=== PATIENT | male | born 1950 | race Caucasian/White ===

== ENCOUNTER 2020-04-17 12:07 | Inpatient (IN) ==
[2020-04-17] MEDS ORDERED: DEXAMETHASONE SOD INJ 10 MG/ML VIAL IV ONE (12:26)
--- NOTE | 2020-04-17 12:34 | Emergency Department Note ---
Impression & Plan Pneumonia due to 2019-nCoV, Hypoxia, Acute kidney injury ED Provider Note NAME: CARLY MONROY Jr AGE: 70 SEX: M : 1950 ARRIVES VIA: Walk-In INFORMANT: Patient, ED PROVIDER(S): Roberto Carlos Sosa DO CHIEF COMPLAINT: Difficulty breathing HPI: The patient is a 70-year-old male who presented to the emergency department for an evaluation of difficulty breathing. The patient states that he has had difficulty breathing over the course the last week. He started having symptoms approximately 1 to 1/2 weeks ago which included fever and GI symptoms. He had a loss of smell. He started having a dry cough. He was seen in [place] at a clinic and was tested for COVID-19 and was positive. 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 He denies having any chest pain. He denies having any lower extremity swelling. He does continue to have intermittent episodes of fever with a T-max of 103. The patient states that his family members noticed that he was having very significant shortness of breath with any exertion. This is what prompted the patient to come to the emergency department today. The patient does not normally wear oxygen. He does not normally have any underlying lung problems but does have a history of a cardiac stent. ROS: See above HPI for pertinent positives & negatives. A total of 10 systems reviewed and were otherwise negative. PAST MEDICAL HISTORY: See Below PAST SURGICAL HISTORY: See Below FAMILY HISTORY: See Below SOCIAL HISTORY: See Below HOME MEDICATIONS: See Below ALLERGIES: See Below VITALS: See Below PHYSICAL EXAMINATION: GENERAL: Patient is awake alert in no acute distress patient is resting comfortably and showing no signs of anxiety EYES: The conjunctivae are clear. The pupils are round and reactive. EARS, NOSE, MOUTH AND THROAT: The nose is without any evidence of any deformity. NECK: The neck is nontender and supple. RESPIRATORY: Shallow respirations were noted. Rales were noted in both bases. Poor air movement was noted. There was no significant conversational dyspnea. CARDIOVASCULAR: Regular rate and rhythm noted there no murmurs rubs or gallops normal S1 normal S2. GASTROINTESTINAL: The abdomen is soft. Abdomen is nontender. MUSCULOSKELETAL/EXTREMITIES: There is no evidence of gross deformity full range of motion is noted in the hips and shoulders. SKIN: There is no obvious evidence of any rash. No significant pedal edema was noted. NEUROLOGIC: Patient is awake alert and oriented x3. MEDICAL DECISION MAKING: The patient is a 70-year-old male who presented to the emergency department for an evaluation of difficulty breathing. The patient was recently diagnosed with COVID-19. Chest x-ray appears to be consistent with COVID-19 infection. The patient was hypoxic. I discussed the patient's laboratory and radiographic studies with him. [facility] have agreed to evaluate the patient in the emergency department for further management and disposition. The patient was placed on supplemental oxygen. The patient at rest was significantly improved. The patient was also found to have an elevation in his troponin. He was treated with IV fluids and IV Decadron. Triage Nursing notes reviewed. Prior medical records reviewed Vital Signs: reviewed and remarkable for hypoxia and hypotension. Differential diagnosis: Reactive airway disease, pneumonia, pneumothorax, COPD, CHF, infections, cardiac ischemia, pulmonary embolism, musculoskeletal, gastrointestinal, as well as other pathologies. ER treatment provided: See below Diagnostics interpreted by me: ECG: EKG was obtained in the emergency department. My interpretation is normal sinus rhythm at 64 bpm. There was no ectopy. There was no acute ST segment abnormalities noted. This was compared to a tracing from December 272012. No significant changes were noted. Cardiac Monitoring: An order was placed for continuous cardiac monitoring. The m onitor shows a rate of 58 bpm with sinus rhythm. Laboratory studies: As stated above and show below. Imaging studies: See below Consultation(s): 1400: I discussed this case with Dr. Pena who [facility] They will evaluate the patient in the emergency department. Past Med/Surg History Surgical History History of knee replacement History of thyroid surgery Family History Father Melanoma Social History Smoking Status: Former smoker Hx Alcohol Use: Yes (socially) Preferred Language: Gambian marital status: Feels Safe at Home: Yes Allergies Allergies Allergy/AdvReac Type Severity Reaction Status Date / Time No Known Drug Allergies Allergy Verified 12/13/19 13:29 Home Meds Home Medications Medication Instructions Recorded Confirmed atenolol 50 mg tablet 50 mg PO DAILY tab 11/23/18 12/13/19 atorvastatin 40 mg tablet 40 mg PO QPM tab 11/23/18 12/13/19 diltiazem HCl 240 mg 240 mg PO DAILY 11/23/18 12/13/19 capsule,extended release 24 hr famotidine 40 mg tablet 40 mg PO DAILY tab 11/23/18 12/13/19 levothyroxine 200 mcg tablet 200 mcg PO DAILY tab 11/23/18 12/13/19 levothyroxine 25 mcg tablet 25 mcg PO DAILY tab 11/23/18 12/13/19 nitroglycerin 0.4 mg sublingual 0.4 mg SL Q5M PRN #1 tab 11/23/18 12/13/19 tablet olmesartan 40 1 tab PO DAILY tab 11/23/18 12/13/19 mg-hydrochlorothiazide 25 mg tablet omega-3 fatty acids 1,000 mg 1,000 mg PO DAILY cap 12/07/18 12/13/19 capsule aspirin 81 mg tablet,delayed 81 mg PO DAILY 06/13/19 12/13/19 release diltiazem HCl 120 mg 120 mg PO DAILY cap 06/13/19 12/13/19 capsule,extended release 24 hr hydrochlorothiazide 25 mg tablet 25 mg PO DAILY 06/13/19 12/13/19 cholecalciferol (vitamin D3) 50 2,000 unit PO DAILY cap 12/13/19 12/13/19 mcg (2,000 unit) capsule prednisone 1 mg tablet 4 mg PO DAILY tab 12/13/19 12/13/19 Previous Rx's Medication Instructions Recorded finasteride 5 mg tablet 5 mg PO DAILY #90 tab 11/02/19 tamsulosin 0.4 mg capsule 0.4 mg PO DAILY #90 cap 01/03/20 Results & Data (ED) Vital Signs Vital Signs - 24 hr 04/17/20 12:08 04/17/20 12:09 04/17/20 12:50 Temperature 36.8 C Temperature Source Temporal Artery Scan Pulse Rate 69 Pulse Rate [Left] Pulse Rhythm [Left] Pulse Strength [Left] Respiratory Rate 18 Respiratory Effort / Characteristics Respiratory Depth Respiratory Pattern Blood Pressure 119/71 Blood Pressure [Left Arm] Blood Pressure Mean 87 Blood Pressure Mean [Left Arm] Blood Pressure Position [Left Arm] Pulse Oximetry 89 L 89 L Oxygen Delivery Method Nasal Cannula Room Air Room Air Oxygen Flow Rate Sepsis Recent Fever Within 48 Hours No Sepsis New/Unexplained Change in Mental Status No Sepsis Action Taken by Nursing No Action Required Oxygen Flow Rate - Titration 2 04/17/20 13:30 Temperature Temperature Source Pulse Rate Pulse Rate [Left] 55 L Pulse Rhythm [Left] Regular Pulse Strength [Left] Normal Respiratory Rate 18 Respiratory Effort / Characteristics Non-Labored Spontaneous Respiratory Depth Normal Respiratory Pattern Regular Blood Pressure Blood Pressure [Left Arm] 105/57 L Blood Pressure Mean Blood Pressure Mean [Left Arm] 73 Blood Pressure Position [Left Arm] Lying Pulse Oximetry 93 Oxygen Delivery Method Nasal Cannula Oxygen Flow Rate 2 Sepsis Recent Fever Within 48 Hours Sepsis New/Unexplained Change in Mental Status Sepsis Action Taken by Nursing Oxygen Flow Rate - Titration Home Medications Current Medication List: was personally reviewed by me Laboratory Data Attestation: I reviewed the patient's lab results. Result diagrams: 04/17/20 12:45 04/17/20 12:45 Lab Results 04/17/20 04/17/20 04/17/20 Range/Units 12:45 12:45 12:45 WBC 8.37 (4.8-10.8) K/uL RBC 4.97 (4.7-6.1) M/uL Hgb 15.6 (14.0-18.0) g/dL Hct 43.9 (42-52) % MCV 88.3 (80-100) fL MCH 31.4 (25-34) pg MCHC 35.5 (32-36) g/dL RDW Std Deviation 44.0 (36.4-46.3) fL RDW Coeff of Jerry 13.5 (11.5-14.5) % Plt Count 208 (130-400) K/uL MPV 11.2 H (7.4-10.4) fL Immature Gran % (Auto) 0.5 % Neut % (Auto) 84.9 % Lymph % (Auto) 5.3 % Spink % (Auto) 9.2 % Eos % (Auto) 0.0 % Baso % (Auto) 0.1 % Neut # (Auto) 7.11 H (1.4-6.5) K/uL Lymph # (Auto) 0.44 L (1.2-3.4) K/uL Spink # (Auto) 0.77 H (0.11-0.59) K/uL Eos # (Auto) 0.00 (0-0.5) K/uL Baso # (Auto) 0.01 (0-0.2) K/uL Immature Gran # (Auto) 0.04 H (0.00-0.02) K/uL PT 11.5 (9.0-12.0) Seconds INR 1.1 (0.9-1.1) APTT 31.1 H (21.0-31.0) Seconds PTT Ratio 1.1 D-Dimer 880 H* (0-500) ug/L FEU Sodium 132 L (136-145) mmol/L Potassium 3.3 L (3.5-5.1) mmol/L Chloride 99 (98-107) mmol/L Carbon Dioxide 22 (21-32) mmol/L Anion Gap 11.0 (3-11) BUN 39 H (7-18) mg/dl Creatinine 1.96 H (0.6-1.4) mg/dl Est Cr Clr Drug Dosing 44.9 ml/min Est GFR ( Amer) 38.7 Est GFR (Non-Af Amer) 33.4 BUN/Creatinine Ratio 19.8 (10-20) Glucose 132 H (70-99) mg/dl Calcium 9.0 (8.5-10.1) mg/dl Magnesium 2.0 (1.8-2.4) mg/dl Total Bilirubin 1.5 H (0.2-1) mg/dl AST 159 H (15-37) U/L ALT 137 H (12-78) U/L Alkaline Phosphatase 77 (45-117) U/L Troponin I 0.060 H* (0-0.045) ng/ml C-Reactive Protein 4.39 H (0-0.29) mg/dl NT-Pro-B Natriuret Pep 318 (0-900) pg/ml Total Protein 7.8 (6.4-8.2) gm/dl Albumin 3.3 L (3.4-5.0) gm/dl Globulin 4.5 H (2.5-4.0) gm/dl Albumin/Globulin Ratio 0.7 L (0.9-2) COVID-19 Eval Order 04/17/20 Range/Units 13:29 WBC (4.8-10.8) K/uL RBC (4.7-6.1) M/uL Hgb (14.0-18.0) g/dL Hct (42-52) % MCV (80-100) fL MCH (25-34) pg MCHC (32-36) g/dL RDW Std Deviation (36.4-46.3) fL RDW Coeff of Jerry (11.5-14.5) % Plt Count (130-400) K/uL MPV (7.4-10.4) fL Immature Gran % (Auto) % Neut % (Auto) % Lymph % (Auto) % Spink % (Auto) % Eos % (Auto) % Baso % (Auto) % Neut # (Auto) (1.4-6.5) K/uL Lymph # (Auto) (1.2-3.4) K/uL Spink # (Auto) (0.11-0.59) K/uL Eos # (Auto) (0-0.5) K/uL Baso # (Auto) (0-0.2) K/uL Immature Gran # (Auto) (0.00-0.02) K/uL PT (9.0-12.0) Seconds INR (0.9-1.1) APTT (21.0-31.0) Seconds PTT Ratio D-Dimer (0-500) ug/L FEU Sodium (136-145) mmol/L Potassium (3.5-5.1) mmol/L Chloride (98-107) mmol/L Carbon Dioxide (21-32) mmol/L Anion Gap (3-11) BUN (7-18) mg/dl Creatinine (0.6-1.4) mg/dl Est Cr Clr Drug Dosing ml/min Est GFR ( Amer) Est GFR (Non-Af Amer) BUN/Creatinine Ratio (10-20) Glucose (70-99) mg/dl Calcium (8.5-10.1) mg/dl Magnesium (1.8-2.4) mg/dl Total Bilirubin (0.2-1) mg/dl AST (15-37) U/L ALT (12-78) U/L Alkaline Phosphatase (45-117) U/L Troponin I (0-0.045) ng/ml C-Reactive Protein (0-0.29) mg/dl NT-Pro-B Natriuret Pep (0-900) pg/ml Total Protein (6.4-8.2) gm/dl Albumin (3.4-5.0) gm/dl Globulin (2.5-4.0) gm/dl Albumin/Globulin Ratio (0.9-2) COVID-19 Eval Order CovFluRsv at [facility] Administered Medications Discontinued Medications Dexamethasone (Dexamethasone Sod Inj 10 Mg/Ml Vial) 10 mg IV NOW ONE Stop: 04/17/20 12:27 Last Admin: 04/17/20 13:29 Dose: 10 mg Documented by: [id number] Imaging Data Radiologist's Impression: Patient: CARLY MONROY Jr Admit Date: 04/17/20 MR#: [id number] Address1: [address] [place] [address] Acct ID:[id number] Address2: Date: 1950 [facility] Zip: [place] [address] Age: 70 Location: ED Sex: M Room/Bed: Att Phy: Diagnosis: COVID +,SOB GETTING WORSE,FEVER OVER 100 [place] Phy: Joe Hernandez M.D. Service Date: 04/17/20 [facility] Phy: Interpreting Phy: Gibson Davis MD Admit Phy: Ordering Phy: Roberto Carlos Sosa DO cc: ~ XR chest 1V portable CLINICAL HISTORY: Dyspnea COMPARISON STUDY: Chest radiograph December 27, 2012. FINDINGS: Incidental note is made of multiple left rib fractures. There is no pneumothorax or pleural effusion. Minimal bibasilar opacities are present with interstitial thickening. There is mild cardiomegaly. IMPRESSION: Minimal bibasilar opacities and interstitial thickening. This could reflect an infectious process or atelectasis. ACT 112: Negative or not required by law. Electronically signed by: Gibson Davis M.D. 04/17/2020 1:30 PM Dictated: 04/17/20 1328 Transcribed: 04/17/20 1328 Blood Pressure Blood Pressure Findings: Normal blood pressure Discharge Plan Visit Data Chief Complaint: Shortness of Breath/Dyspnea Stated Complaint: COVID +,SOB GETTING WORSE ED Provider: Roberto Carlos Sosa Discharge Problem: Pneumonia due to 2019-nCoV, Hypoxia, Acute kidney injury Patient Disposition: Being Evaluated by Hospitalist Condition: Good Forms Stand Alone Forms: My [facility] [employer] Prescriptions Prescriptions: No Action finasteride 5 mg tablet 5 mg PO DAILY Qty: 90 RF: 1 tamsulosin 0.4 mg capsule 0.4 mg PO DAILY Qty: 90 RF: 3 aspirin 81 mg tablet,delayed release (DR/EC) 81 mg PO DAILY RF: 0 hydrochlorothiazide 25 mg tablet 25 mg PO DAILY RF: 0 prednisone 1 mg tablet 4 mg PO DAILY RF: 0 cholecalciferol (vitamin D3) 50 mcg (2,000 unit) capsule 2,000 unit PO DAILY RF: 0 nitroglycerin 0.4 mg tablet, sublingual 0.4 mg SL Q5M PRN (Reason: chest pain) Qty: 1 RF: 0 famotidine 40 mg tablet 40 mg PO DAILY RF: 0 atenolol 50 mg tablet 50 mg PO DAILY RF: 0 diltiazem HCl [Cardizem CD] 240 mg capsule,extended release 24hr 240 mg PO DAILY RF: 0 olmesartan-hydrochlorothiazide 40-25 mg tablet 1 tab PO DAILY RF: 0 levothyroxine 200 mcg tablet 200 mcg PO DAILY RF: 0 levothyroxine 25 mcg tablet 25 mcg PO DAILY RF: 0 atorvastatin 40 mg tablet 40 mg PO QPM RF: 0 omega-3 fatty acids [Fish Oil Concentrate] 1,000 mg capsule 1,000 mg PO DAILY RF: 0 diltiazem HCl 120 mg capsule,extended release 24hr 120 mg PO DAILY RF: 0 Referrals Referrals: Joe Hernandez [Primary Care Provider] -
[2020-04-17 12:59] LABS: Basophils # (auto) 0.01 K/uL (0-0.2); Basophils % (auto) 0.1 %; Hematocrit (blood only) 43.9 % (42-52); Hemoglobin 15.6 g/dL (14.0-18.0); Immature Granulocytes # (auto) 0.04 K/uL (0.00-0.02); Immature Granulocytes % (auto) 0.5 %; Lymphocytes # (auto) 0.44 K/uL (1.2-3.4); Lymphocytes % (auto) 5.3 %; Mean Corpuscular Hemoglobin 31.4 pg (25-34); Mean Corpuscular Hgb Conc 35.5 g/dL (32-36); Mean Corpuscular Volume 88.3 fL (80-100); Mean Platelet Volume 11.2 fL (7.4-10.4); Monocytes # (auto) 0.77 K/uL (0.11-0.59); Monocytes % (auto) 9.2 %; Neutrophils # (auto) 7.11 K/uL (1.4-6.5); Neutrophils % (auto) 84.9 %; Platelet Count 208 K/uL (130-400); RDW Coefficient of Variation 13.5 % (11.5-14.5); Red Blood Count 4.97 M/uL (4.7-6.1); White Blood Count 8.37 K/uL (4.8-10.8)
[2020-04-17 13:19] LABS: Albumin Level 3.3 gm/dl (3.4-5.0); BUN Creatinine Ratio 19.8 (10-20); C Reactive Protein 4.39 mg/dl (0-0.29); Creatinine Clr Calc Pharmacy 44.9 ml/min; Est GFR (African American) 38.7; Est GFR (Non-African American) 33.4; Potassium 3.3 mmol/L (3.5-5.1)
[2020-04-17 13:21] LABS: INR 1.1 (0.9-1.1); Partial Thromboplastin Ratio 1.1; Partial Thromboplastin Time 31.1 Seconds (21.0-31.0); Prothrombin Time 11.5 Seconds (9.0-12.0)
--- NOTE | 2020-04-17 13:31 | XRay Report ---
XR chest 1V portable CLINICAL HISTORY: Dyspnea COMPARISON STUDY: Chest radiograph December 27, 2012. FINDINGS: Incidental note is made of multiple left rib fractures. There is no pneumothorax or pleural effusion. Minimal bibasilar opacities are present with interstitial thickening. There is mild cardio megaly. IMPRESSION: Minimal bibasilar opacities and interstitial thickening. This could reflect an infectiou s process or atelectasis. ACT 112: Negative or not required by law. Electronically signed by: Gibson Davis M.D. 04/17/2020 1:30 PM
[2020-04-17 13:32] LABS: Albumin Globulin Ratio 0.7 (0.9-2); Bilirubin,Total 1.5 mg/dl (0.2-1); Globulin 4.5 gm/dl (2.5-4.0); Total Protein 7.8 gm/dl (6.4-8.2); Troponin I 0.06 ng/ml (0-0.045)
[2020-04-17] MEDS ORDERED: SODIUM CHLORIDE 0.9% 1000ML 500 ML IV ONE (13:33)
[2020-04-17] MEDS ORDERED: POTASSIUM CHLORIDE CRTAB 20 MEQ TABCR PO STA (13:33)
[2020-04-17 13:45] LABS: D Dimer 880 ug/L FEU (0-500)
[2020-04-17 14:23] LABS: Influenza A virus by PCR Negative (Neg); Influenza B virus by PCR Negative (Neg); RSV by PCR Negative (Neg)
[2020-04-17] MEDS ORDERED: POTASSIUM CHLORIDE CRTAB 20 MEQ TABCR PO ONE (14:30)
[2020-04-17] MEDS ORDERED: LACTATED RINGER'S 1,000 ML IV ONE (14:30)
[2020-04-17 14:35] LABS: SARS CoV2 RNA(COVID-19) InHosp POSITIVE (Negative)
[2020-04-17 14:51] LABS: Oxygen Saturation VBG 82.4 %; pH VBG 7.45 (7.36-7.41)
--- NOTE | 2020-04-17 14:53 | History & Physical Report ---
Date of Service April 17, 2020 Assessment & Plan (1) COVID-19: Day 4 of symptoms, currently mild disease with multiple co-morbidities. - Evidence of organ dysfunction, will follow renal/liver/cardiac indices and biomarkers. - Hold on Remdesivir for now with CRCL, if this improves with fluid resuscitation AND patient condition worsens will add. Goal now is to preserve kidney function. - Consent for Convalescent Plasma if patient agrees. - Decadron 6mg for 10 days. - Procalcitonin 0.2, NLR 4:1. - Support oxygenation for goal SPO2 > 90%, good candidate for HFNC if needed. - Support fluids with diarrhea loss with oral and IVF if needed. (2) Hypoxia: Seccondary to COVID-19, does not appear to have bacterial infection superimposed. - PCT negative - no ABX needed - Albuterol and Atrovent MDI scheduled, change to PRN if responds well after 24 hours. - Rest of oxygen therapy as above. (3) CAD (coronary artery disease): Patient with history of RCA stent in 1997 - Continue asa, statin, BB and CCB - NTG prn if needed, patient states he has never used his NTG. - Hold AISHA/ARB for 24-48 hours following NILES (4) HTN (hypertension): As above. Goal SBP <140, MAPS >65 - Normally well controlled with BP 120-140, Currently SBP 105 with MAP 73. Will hold nightyime dose of Dilt. Follow closely restart when hemodynamics support. (5) Hypokalemia: Likely related to diarrhea losses, HCTZ, and poor PO intake. - Supplement with 40 MEQ PO x1 in the EMD - BMP daily - K~4.0 for goal (6) Acute kidney injury: Baseline BUN 9.8 and FELL CUTTER 1.14, has been stable at this for past year. -Currently stage I injury with FELL CUTTER >0.3mg/dl and CRCL 44.9 and GFR decreased to 33.4 from 64.8 in March. - Resucitate with LR for one liter, encourage PO intake to replace fluid lost with diarrhea - Hold AISHA/ARB 24-48 hours will re-start with renal indices return to close or at baseline. - Hold HCTZ at this time. - Avoid nephrotoxic agents - renal dose medications - Adjust Lovenox accordingly - follow BMP (7) HLD (hyperlipidemia): Check lipids in the morning Hold statin for elevated LFTs (8) Cerebrovascular disease: Manage blood pressure as above and holding statin therapy as above. - no new symptoms or evidence of worsening disease from physical exam. (9) BPH (benign prostatic hyperplasia): Continue home medications, follow urine output. - Hold if BP decreases (10) Troponin level elevated: Mild troponin elevation at 0.06, no acute changes on ECG, but non-specific T waves. Trend troponin, ECG with chest pain or rise in troponin. - therapy as above (11) PMR (polymyalgia rheumatica): Patient is chronically on Prednisone daily - Will hold while patient is receiving Decadron. - Tylenol for pain - Will hold on NSAIDs with NILES (12) Hypothyroidism: Check TSH in the AM continue home Levothyroxine dose for now (13) DVT prophylaxis: Lovenox SQ daily Disposition-admit to medical/surgical floor History of Present Illness Primary Care Provider: Joe Hernandez 70 YOM came to the ER today because his and son thought he was looking tired and having a more difficult time breathing. The patient states that "he feels "ok" and hasn't noticed it." Patient has a history of BPH, HLD, CAD with stenting in 1997 prior to his bilateral knee replacements, HTN, obesity, PMR and internal iliac aneurysm, and Hypothyroidism. The patient was recently diagnosed with COVID 19 on Apr,. 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 The patient's son-in law tested positive a couple weeks ago and his son recently tested positive on Apr. Mr. Giron started with a mild headache around and started having diarrhea on Thursday. Patients headache worsened on Thursday as well as having a fever to 103. The patient went and got tested at an urgent care in [place] on Thursday and was "positive". In the EMD the patient was 90% on RA on admission and maintained 90% on room air throughout the interview while on 2l NC the patient Spo2 was 94-96%. The patient denies any further symptoms, his headache has resolved and his joint pain is at his baseline, headache was mild 2-3/10 and was bilateral along the forehead. Diarrhea is about 4-5 times per day and has not noted blood in his stools and denies abdominal pain. The patient does show evidence of end organ involvement with elevated AST/ALT, Tbili, increase in his BUN/FELL CUTTER, and elevated CRP and ESR, with evidence of hypovolemia. The patient will be admitted for hypoxia, resuscitate and follow biomarkers for end organ involvement. Allergies Allergy/AdvReac Type Severity Reaction Status Date / Time No Known Drug Allergies Allergy Verified 04/17/20 14:38 Home Medications Medication Instructions Recorded Confirmed Type atenolol 50 mg tablet 50 mg PO DAILY tab 11/23/18 04/17/20 History atorvastatin 40 mg tablet 40 mg PO QPM tab 11/23/18 04/17/20 History diltiazem HCl 240 mg 240 mg PO DAILY 11/23/18 04/17/20 History capsule,extended release 24 hr famotidine 40 mg tablet 40 mg PO DAILY tab 11/23/18 04/17/20 History levothyroxine 200 mcg tablet 200 mcg PO DAILY tab 11/23/18 04/17/20 History levothyroxine 25 mcg tablet 25 mcg PO DAILY tab 11/23/18 04/17/20 History nitroglycerin 0.4 mg sublingual 0.4 mg SL Q5M PRN #1 tab 11/23/18 04/17/20 History tablet olmesartan 40 1 tab PO DAILY tab 11/23/18 04/17/20 History mg-hydrochlorothiazide 25 mg tablet omega-3 fatty acids 1,000 mg 1,000 mg PO DAILY cap 12/07/18 04/17/20 History capsule aspirin 81 mg tablet,delayed 81 mg PO DAILY 06/13/19 04/17/20 History release diltiazem HCl 120 mg 120 mg PO HS cap 06/13/19 04/17/20 History capsule,extended release 24 hr hydrochlorothiazide 25 mg tablet 25 mg PO DAILY 06/13/19 04/17/20 History finasteride 5 mg tablet 5 mg PO DAILY #90 tab 11/02/19 04/17/20 Rx cholecalciferol (vitamin D3) 50 2,000 unit PO DAILY cap 12/13/19 04/17/20 History mcg (2,000 unit) capsule tamsulosin 0.4 mg capsule 0.4 mg PO DAILY #90 cap 01/03/20 04/17/20 Rx prednisone 3 mg PO DAILY 04/17/20 04/17/20 History Past Med/Surg History Medical History (Updated 04/17/20 @ 19:24 by Sarika Pena MD) BPH (benign prostatic hyperplasia) CAD (coronary artery disease) RCA stent 1997 Cerebrovascular disease 50% bilateral JEFF HLD (hyperlipidemia) HTN (hypertension) Hyperdense renal cyst Hypothyroidism PMR (polymyalgia rheumatica) Surgical History H/O heart artery stent History of knee replacement History of thyroid surgery Family History Father Melanoma Coronary heart disease Hypertension Mother No problems noted. Social History Smoking Status: Former smoker Cigarettes Per Day: 24; Smoking End Date: 1995; Do You Dip or Chew Tobacco: No; Hx Alcohol Use: Yes Alcohol type: beer Hx Substance Use: No Preferred Language: Kinyarwanda Communication Ability: Effective General Farmworker Required: No Beliefs That Will Affect Care: None marital status: Current Living Situation: Spouse Current Living Situation Comment: Other Information That Helps Us Care for You: No Feels Safe at Home: Yes Safety Concerns: Feels Safe At This Time Assistive Devices: Denture - Upper, Denture - Lower, Glasses and Oxygen - Continuous Assistive Devices Comment: 02 use acute not chronic Review of Systems Review of Systems: REVIEW OF SYSTEMS: Constitutional: + fever, +fatigued, No sweats or chills Eyes: No diplopia, no worsening or blurred vision, wears glasses ENT: normal hearing, no trouble swallowing Respiratory: (+) cough, (-) sputum and denies dyspnea at rest or on exertion Cardiovascular: No chest pain, tightness or palpitations Abdomen: (+) diarrhea, (-) pain, nausea, vomiting, diarrhea or constipation : (+) Frequent urination, incomplete emptying of bladder, (-) incontinence Neurologic: No weakness, numbness/tingling, or balance problems Psychiatric: No anxiety or depression Skin: No rash or itch Physical Exam Physical Exam: PHYSICAL EXAM: General: awake, keenly alert, no apparent distress Head: Normocephalic, atraumatic ENT: PERRL, EOMI, no pharyngeal exudate, mucous membranes moist Neuro: AAO x 3, speech clear and appropriate, strength intact bilaterally 5/5, sensation intact and equal, no pronator drift Chest: equal rise and fall of the chest, no accessory muscle use, no heaves or thrills, Clear to auscultation, on room air Cardiac: Regular rate and rhythm, telemetry reviewed, skin warm dry, cap refill <3 seconds, peripheral pulses +2 no JVD, no murmur, no JVD, no edema GI: NABS x 4 quadrants, obese, soft, nontender to palpation, no rebound, guarding or tenderness : Spontaneously voiding, no pain, no CVA tenderness, Extremities: Normal inspection, no peripheral edema or erythema, calfs nontender to palpation Psych: Normal mood and affect Skin: no rash or erythema Results & Data Results & Data ([facility]) Vital Signs (Past 12 Hours) Vital Signs Temp Pulse Pulse Resp BP BP Pulse Ox 04/17/20 13:30 55 L 18 105/57 L 93 04/17/20 12:50 89 L 04/17/20 12:09 36.8 C 69 18 119/71 89 L XR chest 1V portable CLINICAL HISTORY: Dyspnea COMPARISON STUDY: Chest radiograph December 27, 2012. FINDINGS: Incidental note is made of multiple left rib fractures. There is no pneumothorax or pleural effusion. Minimal bibasilar opacities are present with interstitial thickening. There is mild cardiomegaly. IMPRESSION: Minimal bibasilar opacities and interstitial thickening. This could reflect an infectious process or atelectasis. ECG: Normal sinus rhythm Minimal voltage criteria for LVH, Nonspecific T wave abnormality Medications Administered Discontinued Medications Dexamethasone (Dexamethasone Sod Inj 10 Mg/Ml Vial) 10 mg IV NOW ONE Stop: 04/17/20 12:27 Last Admin: 04/17/20 13:29 Dose: 10 mg Documented by: [id number] Sodium Chloride (Nss 1000ml) 500 mls @ 999 mls/hr IV .Q31M ONE Stop: 04/17/20 14:03 Last Admin: 04/17/20 14:33 Dose: 999 mls/hr Documented by: [id number] Potassium Chloride (Potassium Chloride Crtab 20 Meq Tabcr) 20 meq PO NOW STA Stop: 04/17/20 13:34 Last Admin: 04/17/20 14:33 Dose: 20 meq Documented by: [id number] Potassium Chloride (Potassium Chloride Crtab 20 Meq Tabcr) 20 meq PO NOW ONE Stop: 04/17/20 14:31 Last Admin: 04/17/20 14:33 Dose: Not Given Documented by: [id number] Code Status & VTE Plan Code Status Full Code Lovenox and SCD's for VTE. VTE Prophylaxis Plan VTE Prophylaxis will be ordered: Yes Supervising Physician Co-Signing Physician Notes [employer]MENT REPAIRER Supervision note: I have personally seen and examined the patient and discussed and verified the courtney points of the history and physical along with the plan with AJAY Melendez with the following exceptions and/or additions: This patient is a 70-year-old male with history noted as above, here with worsening shortness of breath for the last 4 days with diagnosis of Covid-19. He is pneumonia here. He denies chest pain. Has a mild cough. Has also had some loose stools that are nonbloody. No abdominal pain. He was requiring oxygen in the ER and had a mildly elevated troponin as well as elevated LFTs. History and ROS reviewed as above Vitals reviewed Gen: AAOx3, NAD HEENT: Anicteric sclerae, EOMI CV: RRR no mgr nl S1S2 Pulm: Crackles at the bases bilaterally Abd: +BS soft NT ND no masses or hernias Ext: No edema, 2+ DP pulses Skin: No rashes, warm/dry Neuro: Full strength throughout Laboratory values reviewed Imaging reviewed ECG reviewed 70-year-old male here with Covid-19 pneumonia and acute respiratory failure with hypoxia, elevated LFTs likely related to Covid-19. Treatment plan as outlined above PG Care Time/CCT Total # of Minutes Spent Total Time Spent with Patient: Total time spent is greater than 50% in coordination of care (as documented) at patient's floor/unit and/or counseling patient: Coding Level of Care Code 83015 Initial Inpt Care Lvl 3 Diagnoses COVID-19 U07.1 Hypoxia R09.02 CAD (coronary artery disease) I25.10 Associated angina: without angina Coronary Disease-Associated Artery/Lesion type: unspecified vessel or lesion type [place] vs. transplanted heart: [place] heart HTN (hypertension) I10 Hypertension type: essential hypertension Hypokalemia E87.6 Acute kidney injury N17.9 HLD (hyperlipidemia) E78.5 Hyperlipidemia type: unspecified Cerebrovascular disease I67.9 BPH (benign prostatic hyperplasia) N40.1; R35.0 Lower urinary tract symptom detail: urinary frequency Lower urinary tract symptom presence: symptoms present Troponin level elevated R77.8 PMR (polymyalgia rheumatica) M35.3 Hypothyroidism E03.9 DVT prophylaxis Z29.9 (1) BPH (benign prostatic hyperplasia) Lower urinary tract symptom detail: urinary frequency Lower urinary tract symptom presence: symptoms present Qualified Code(s): N40.1 - Benign prostatic hyperplasia with lower urinary tract symptoms; R35.0 - Frequency of micturition (2) CAD (coronary artery disease) Associated angina: without angina Coronary Disease-Associated Artery/Lesion type: unspecified vessel or lesion type [place] vs. transplanted heart: [place] heart Qualified Code(s): I25.10 - Atherosclerotic heart disease of [place] coronary artery without angina pectoris (3) HLD (hyperlipidemia) Hyperlipidemia type: unspecified Qualified Code(s): E78.5 - Hyperlipidemia, unspecified (4) HTN (hypertension) Hypertension type: essential hypertension Qualified Code(s): I10 - Essential (primary) hypertension
--- NOTE | 2020-04-17 15:30 | Electrocardiogram Report ---
Test Reason : Blood Pressure : / mmHG Vent. Rate : 064 BPM Atrial Rate : 064 BPM P-R Int : 172 ms QRS Dur : 078 ms QT Int : 392 ms P-R-T Axes : 053 034 056 degrees QTc Int : 404 ms Normal sinus rhythm Minimal voltage criteria for LVH, may be normal variant Nonspecific T wave abnormality Lateral leads Abnormal ECG When compared with ECG of 27-DEC-2012 14:50, Nonspecific T wave abnormality now evident in Lateral leads Confirmed by Tra Hamilton ([id number]) on 04/17/2020 3:29:57 PM Referred By: Confirmed By:Tra Hamilton
[2020-04-17] MEDS ORDERED: IPRATROPIUM BROMIDE/ALBUTEROL respimat INH INH SCH (16:15)
[2020-04-17] MEDS ORDERED: NITROGLYCERIN SL 0.4 MG/TAB TAB SL PRN (18:04)
[2020-04-17] MEDS: ENOXAPARIN INJ 40 MG/0.4 ML SYR SQ SCH (20:45)
[2020-04-17] MEDS ORDERED: ATORVASTATIN 40 MG TAB PO SCH (21:00)
[2020-04-18] MEDS: Ipratropium HFA Inhaler (Combivent Respimat P&T Subs) INH SCH ×2 (01:13→07:28)
[2020-04-18] MEDS: Albuterol HFA 8 GM Inhaler (Combivent Respimat P&T Subs) INH SCH ×2 (01:14→07:29)
[2020-04-18] MEDS: LEVOTHYROXINE SODIUM 200 MCG TABLET PO SCH (04:10)
[2020-04-18 05:51] LABS: Appearance Urine Clear (Clear); Bacteria Urine Automated Negative (Negative); Bilirubin Urine Negative (Negative); Blood Urine Trace (Negative); Color Urine Yellow; Glucose Urine UA Negative (Negative); Ketones Urine Negative (Negative); Leukocyte Esterase Urine Negative (Negative); Nitrite Urine Negative (Negative); Protein Urine 1+ (Negative); RBC Urine Automated 0-4 /hpf (0-4); Specific Gravity Urine 1.016 (1.000-1.030); Urobilinogen Urine Negative (Negative)
[2020-04-18] MEDS ORDERED: LEVOTHYROXINE SODIUM 25 MCG TABLET PO SCH (06:30)
[2020-04-18] MEDS: DEXAMETHASONE SOD PHOSPHATE 6 MG in SYRINGE 0 ML IV SCH (07:50)
[2020-04-18] MEDS: ACETAMINOPHEN 325 MG TAB PO PRN ×2 (07:50→23:57)
[2020-04-18] MEDS: FINASTERIDE 5 MG TAB PO SCH (07:51)
[2020-04-18] MEDS: ASPIRIN 81 MG ECTAB PO SCH (07:51)
[2020-04-18] MEDS: TAMSULOSIN HCL 0.4 MG CAP PO SCH (07:51)
[2020-04-18] MEDS: FAMOTIDINE 40 MG TABLET PO SCH (07:51)
[2020-04-18] MEDS: CHOLECALCIFEROL 1,000 UNITS 25 MCG TAB PO SCH (07:52)
[2020-04-18] MEDS: OMEGA-3 (PURIFIED FISH OIL) 1 GM CAP PO SCH (07:52)
[2020-04-18 07:53] LABS: Basophils # (auto) 0.01 K/uL (0-0.2); Basophils % (auto) 0.1 %; Hematocrit (blood only) 43.7 % (42-52); Hemoglobin 15.5 g/dL (14.0-18.0); Immature Granulocytes # (auto) 0.03 K/uL (0.00-0.02); Immature Granulocytes % (auto) 0.4 %; Lymphocytes % (auto) 7.3 %; Mean Corpuscular Hemoglobin 31.4 pg (25-34); Mean Corpuscular Hgb Conc 35.5 g/dL (32-36); Mean Corpuscular Volume 88.5 fL (80-100); Mean Platelet Volume 11.3 fL (7.4-10.4); Monocytes # (auto) 1.11 K/uL (0.11-0.59); Monocytes % (auto) 13.6 %; Neutrophils # (auto) 6.44 K/uL (1.4-6.5); Neutrophils % (auto) 78.6 %; Platelet Count 200 K/uL (130-400); RDW Coefficient of Variation 13.3 % (11.5-14.5); RDW Standard Deviation 43.7 fL (36.4-46.3); Red Blood Count 4.94 M/uL (4.7-6.1); White Blood Count 8.19 K/uL (4.8-10.8)
--- NOTE | 2020-04-18 07:57 | Hospitalist Progress Note ---
Date of Service April 18, 2020 Assessment & Plan (1) COVID-19: symptoms started around 04/13/20, currently mild disease with multiple co- morbidities.\ - Hold on Remdesivir niles with ckd3 - Decadron 6mg for 10 days or until hypoxia resolves - Procalcitonin 0.2, NLR 4:1. - Support oxygenation for goal SPO2 > 90%, good candidate for HFNC if needed. - no diarrhea only constipation (2) Hypoxia: Seccondary to COVID-19, does not appear to have bacterial infection superimposed. - PCT negative - no ABX needed - Albuterol and Atrovent MDI PRN (3) CAD (coronary artery disease): Patient with history of RCA stent in 1997 - Continue asa, statin, BB and CCB - NTG prn if needed, patient states he has never used his NTG. 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 - Hold AISHA/ARB 24-48 hours will re-start with renal indices return to close or at baseline. - Hold HCTZ at this time. - Avoid nephrotoxic agents - renal dose medications - Adjust Lovenox accordingly - improving with hydration and holding meds (7) HLD (hyperlipidemia): admitting provider held statin, will resume (8) Cerebrovascular disease: Manage blood pressure as above and holding statin therapy as above. - no new symptoms or evidence of worsening disease from physical exam. (9) BPH (benign prostatic hyperplasia): Continue home medications, follow urine output. - Hold if BP decreases (10) Troponin level elevated: Mild troponin elevation at 0.06, no acute changes on ECG, but non-specific T waves. no significant trend. - (11) PMR (polymyalgia rheumatica): Patient is chronically on Prednisone daily - Will hold while patient is receiving Decadron. - Tylenol for pain - Will hold on NSAIDs with NILES (12) Hypothyroidism: Check TSH slightly low, continue home Levothyroxine dose for now check free T4, does not clinically appear hyperthyroid (13) DVT prophylaxis: Lovenox SQ daily Disposition-admit to medical/surgical floor Admission and Anticipated Discharge Date Admission Date: April 17, 2020 Subjective Pt is not feeling too poorly or short of breath, no diarrhea, no loss of taste or smell Review of Systems Review of Systems: Mild distress and fatigue no headache, blurry or double vision no speech or swallowing issues no chest pain, pressure or palpitations mild shortness of breath, non productive cough or wheezes no abdominal pain, nausea or vomiting, diarrhea or constipation no dysuria, hematuria or frequency no focal joint pain or swelling no back pain, CVA tenderness or radicular pain no bruising, bleeding or rashes no focal signs of weakness or numbness or altered sensation no complaints of anxiety or depression.. Physical Exam Physical Exam: The patient appeared well nourished and normally developed. Vital signs as documented. Head exam is normocephalic atraumatic no scleral icterus Neck is without JVD, thyromegaly, or carotid bruits. Lungs are only with occasional rales bilaterally Cardiac exam, Rhythm is regular.. No murmurs, rubs or gallops. Abdominal exam reveals normal bowel sounds, soft non tender, no masses Extremities are nonedematous and both pedal pulses are present Neurologic exam is alert and oriented, no focal loss of strength or sensation Skin is without bruises or rashes Psychologically is without concerns for anxiety or depression. Results & Data Results & Data ([facility]) Vital Signs (Past 12 Hours) Vital Signs Temp Pulse Resp BP Pulse Ox 04/18/20 07:31 64 22 95 04/18/20 02:09 47 L 16 96 04/18/20 00:11 97.5 F L 44 L 16 93/48 L 93 PG Care Time/CCT Total # of Minutes Spent Total Time Spent with Patient: Total time spent is greater than 50% in coordination of care (as documented) at patient's floor/unit and/or counseling patient: Coding Level of Care Code 10418 Subseq Hosp Care Lvl 3 Diagnoses COVID-19 U07.1 Hypoxia R09.02 CAD (coronary artery disease) I25.10 Associated angina: without angina Coronary Disease-Associated Artery/Lesion type: unspecified vessel or lesion type [place] vs. transplanted heart: [place] heart HTN (hypertension) I10 Hypertension type: essential hypertension Hypokalemia E87.6 Acute kidney injury N17.9 HLD (hyperlipidemia) E78.5 Hyperlipidemia type: unspecified Cerebrovascular disease I67.9 BPH (benign prostatic hyperplasia) N40.1; R35.0 Lower urinary tract symptom detail: urinary frequency Lower urinary tract symptom presence: symptoms present Troponin level elevated R77.8 PMR (polymyalgia rheumatica) M35.3 Hypothyroidism E03.9 DVT prophylaxis Z29.9 (1) BPH (benign prostatic hyperplasia) Lower urinary tract symptom detail: urinary frequency Lower urinary tract symptom presence: symptoms present Qualified Code(s): N40.1 - Benign prostatic hyperplasia with lower urinary tract symptoms; R35.0 - Frequency of micturition (2) CAD (coronary artery disease) Associated angina: without angina Coronary Disease-Associated Artery/Lesion type: unspecified vessel or lesion type [place] vs. transplanted heart: [place] heart Qualified Code(s): I25.10 - Atherosclerotic heart disease of [place] coronary artery without angina pectoris (3) HLD (hyperlipidemia) Hyperlipidemia type: unspecified Qualified Code(s): E78.5 - Hyperlipidemia, unspecified (4) HTN (hypertension) Hypertension type: essential hypertension Qualified Code(s): I10 - Essential (primary) hypertension
[2020-04-18] MEDS: dilTIAZem HCL 240 MG CAPCR PO SCH (08:14)
[2020-04-18] MEDS: ATENOLOL 50 MG TABLET PO SCH (08:14)
[2020-04-18 08:21] LABS: Albumin Level 2.9 gm/dl (3.4-5.0); Bilirubin Direct 0.3 mg/dl (0-0.2); Calcium 9.2 mg/dl (8.5-10.1); Creatinine Clr Calc Pharmacy 62.1 ml/min; Est GFR (African American) 58.2; Est GFR (Non-African American) 50.2; Magnesium 2.2 mg/dl (1.8-2.4); Potassium 3.5 mmol/L (3.5-5.1)
[2020-04-18 08:30] LABS: Bilirubin,Total 1.1 mg/dl (0.2-1); Thyroid Stimulating Hormone 0.139 uIu/ml (0.300-4.500); Total Protein 7.2 gm/dl (6.4-8.2)
[2020-04-18] MEDS ORDERED: DEXAMETHASONE SOD INJ 10 MG/ML VIAL IV SCH ×2 (09:00)
[2020-04-18] MEDS ORDERED: dexAMETHasone 6 MG in SYRINGE 0 ML IV SCH (09:00)
[2020-04-18] MEDS ORDERED: ALBUTEROL HFA 8 GM INHALER INH PRN (10:15)
[2020-04-18] MEDS ORDERED: IPRATROPIUM BROMIDE HFA INHALER INH PRN (10:15)
[2020-04-18] MEDS: ENOXAPARIN INJ 40 MG/0.4 ML SYR SQ SCH (21:26)
[2020-04-19] MEDS: LEVOTHYROXINE SODIUM 200 MCG TABLET PO SCH (05:52)
[2020-04-19 07:11] LABS: Mean Corpuscular Hgb Conc 34.6 g/dL (32-36); Mean Platelet Volume 11.7 fL (7.4-10.4); Platelet Count 233 K/uL (130-400)
[2020-04-19 07:41] LABS: Hematocrit (blood only) 45.9 % (42-52); Hemoglobin 15.9 g/dL (14.0-18.0); Mean Corpuscular Hemoglobin 30.9 pg (25-34); Mean Corpuscular Volume 89.1 fL (80-100); RDW Coefficient of Variation 13.4 % (11.5-14.5); RDW Standard Deviation 44.2 fL (36.4-46.3); Red Blood Count 5.15 M/uL (4.7-6.1); White Blood Count 9.83 K/uL (4.8-10.8)
[2020-04-19 07:42] LABS: Basophils # (auto) 0.01 K/uL (0-0.2); Basophils % (auto) 0.1 %; Eosinophils # (auto) 0.01 K/uL (0-0.5); Eosinophils % (auto) 0.1 %; Immature Granulocytes # (auto) 0.09 K/uL (0.00-0.02); Immature Granulocytes % (auto) 0.9 %; Lymphocytes # (auto) 0.81 K/uL (1.2-3.4); Lymphocytes % (auto) 8.2 %; Monocytes % (auto) 9.2 %; Neutrophils # (auto) 8.01 K/uL (1.4-6.5); Neutrophils % (auto) 81.5 %
[2020-04-19 08:03] LABS: Albumin Level 2.9 gm/dl (3.4-5.0); BUN Creatinine Ratio 23.7 (10-20); Bilirubin,Total 1.1 mg/dl (0.2-1); Calcium 8.8 mg/dl (8.5-10.1); Creatinine Clr Calc Pharmacy 64.9 ml/min; Est GFR (African American) 61.3; Est GFR (Non-African American) 52.9; T4 Free Thyroxine 1.71 ng/dl (0.8-1.6); Total Protein 7.4 gm/dl (6.4-8.2)
[2020-04-19 08:06] LABS: Potassium 3.6 mmol/L (3.5-5.1)
[2020-04-19 08:23] LABS: Bilirubin Direct 0.3 mg/dl (0-0.2); Magnesium 2.1 mg/dl (1.8-2.4)
[2020-04-19] MEDS: dilTIAZem HCL 240 MG CAPCR PO SCH (09:05)
[2020-04-19] MEDS: DEXAMETHASONE SOD PHOSPHATE 6 MG in SYRINGE 0 ML IV SCH (09:07)
[2020-04-19] MEDS: OMEGA-3 (PURIFIED FISH OIL) 1 GM CAP PO SCH (09:09)
[2020-04-19] MEDS: TAMSULOSIN HCL 0.4 MG CAP PO SCH (09:10)
[2020-04-19] MEDS: ASPIRIN 81 MG ECTAB PO SCH (09:12)
[2020-04-19] MEDS: FAMOTIDINE 40 MG TABLET PO SCH (09:13)
[2020-04-19] MEDS: CHOLECALCIFEROL 1,000 UNITS 25 MCG TAB PO SCH (09:17)
[2020-04-19] MEDS: ATENOLOL 50 MG TABLET PO SCH (09:18)
[2020-04-19] MEDS: FINASTERIDE 5 MG TAB PO SCH (09:19)
--- NOTE | 2020-04-19 16:03 | Hospitalist Progress Note ---
Date of Service April 19, 2020 Assessment & Plan (1) COVID-19: *Pneumonia due to coronavirus disease 2019 - symptoms started around 04/13/20, currently mild disease with multiple co- morbidities.\ - niles with ckd3, niles has resolved and gfr improved started remdesivir - Decadron 6mg for 10 days or until hypoxia resolves - Procalcitonin 0.2, NLR 4:1. - Support oxygenation for goal SPO2 > 90%, good candidate for HFNC if needed. - no diarrhea only constipation (2) Hypoxia: Seccondary to COVID-19 pneumonia, does not appear to have bacterial infection superimposed. - PCT negative - no ABX needed - Albuterol and Atrovent MDI PRN (3) CAD (coronary artery disease): Patient with history of RCA stent in 1997 - Continue asa, statin, BB and CCB - NTG prn if needed, patient states he has never used his NTG. - Hold AISHA/ARB for NILES, improved since admission (4) HTN (hypertension): - Normally well controlled (5) Hypokalemia: replete (6) Acute kidney injury: resolved - Hold AISHA/ARB 24-48 hours will re-start with renal indices return to close or at baseline. - Hold HCTZ at this time bp is stable. - Avoid nephrotoxic agents - renal dose medications - Adjust Lovenox accordingly - improving with hydration and holding meds (7) HLD (hyperlipidemia): admitting provider held statin, will resume (8) Cerebrovascular disease: Manage blood pressure as above and holding statin therapy as above. - no new symptoms or evidence of worsening disease from physical exam. (9) BPH (benign prostatic hyperplasia): Continue home medications, follow urine output. - Hold if BP decreases (10) Troponin level elevated: Mild troponin elevation at 0.06, no acute changes on ECG, but non-specific T waves. no significant trend. - (11) PMR (polymyalgia rheumatica): Patient is chronically on Prednisone daily - Will hold while patient is receiving Decadron. - Tylenol for pain - Will hold on NSAIDs with NILES (12) Hypothyroidism: Check TSH slightly low, continue home Levothyroxine dose for now check free T4, does not clinically appear hyperthyroid (13) DVT prophylaxis: Lovenox SQ daily Disposition-admit to medical/surgical floor Admission and Anticipated Discharge Date Admission Date: April 17, 2020 Subjective Pt continues with littel complaints but does have tachypnea on exam and in conversation today Review of Systems Review of Systems: Mild distress and fatigue no headache, blurry or double vision no speech or swallowing issues no chest pain, pressure or palpitations mild shortness of breath, non productive cough or wheezes no abdominal pain, nausea or vomiting, diarrhea or constipation no dysuria, hematuria or frequency no focal joint pain or swelling no back pain, CVA tenderness or radicular pain no bruising, bleeding or rashes no focal signs of weakness or numbness or altered sensation no complaints of anxiety or depression.. Physical Exam Physical Exam: The patient appeared well nourished and normally developed. Vital signs as documented. Head exam is normocephalic atraumatic no scleral icterus Neck is without JVD, thyromegaly, or carotid bruits. Lungs are only with occasional rales bilaterally Cardiac exam, Rhythm is regular.. No murmurs, rubs or gallops. Abdominal exam reveals normal bowel sounds, soft non tender, no masses Extremities are nonedematous and both pedal pulses are present Neurologic exam is alert and oriented, no focal loss of strength or sensation Skin is without bruises or rashes Psychologically is without concerns for anxiety or depression. Results & Data Results & Data ([facility]) Vital Signs (Past 12 Hours) Vital Signs Temp Pulse Resp BP Pulse Ox 04/19/20 15:08 97.5 F L 56 L 16 118/65 91 04/19/20 12:09 99.0 F 120/66 04/19/20 09:41 91 04/19/20 07:10 98.1 F 74 24 190/62 H 93 04/19/20 05:54 100.6 F H PG Care Time/CCT Total # of Minutes Spent Total Time Spent with Patient: Total time spent is greater than 50% in coordination of care (as documented) at patient's floor/unit and/or counseling patient: Coding Level of Care Code 64856 Subseq Hosp Care Lvl 3 Diagnoses COVID-19 U07.1 Hypoxia R09.02 CAD (coronary artery disease) I25.10 Associated angina: without angina Coronary Disease-Associated Artery/Lesion type: unspecified vessel or lesion type [place] vs. transplanted heart: [place] heart HTN (hypertension) I10 Hypertension type: essential hypertension Hypokalemia E87.6 Acute kidney injury N17.9 HLD (hyperlipidemia) E78.5 Hyperlipidemia type: unspecified Cerebrovascular disease I67.9 BPH (benign prostatic hyperplasia) N40.1; R35.0 Lower urinary tract symptom detail: urinary frequency Lower urinary tract symptom presence: symptoms present Troponin level elevated R77.8 PMR (polymyalgia rheumatica) M35.3 Hypothyroidism E03.9 DVT prophylaxis Z29.9 (1) BPH (benign prostatic hyperplasia) Lower urinary tract symptom detail: urinary frequency Lower urinary tract symptom presence: symptoms present Qualified Code(s): N40.1 - Benign prostatic hyperplasia with lower urinary tract symptoms; R35.0 - Frequency of micturition (2) CAD (coronary artery disease) Associated angina: without angina Coronary Disease-Associated Artery/Lesion type: unspecified vessel or lesion type [place] vs. transplanted heart: [place] heart Qualified Code(s): I25.10 - Atherosclerotic heart disease of [place] coronary artery without angina pectoris (3) HLD (hyperlipidemia) Hyperlipidemia type: unspecified Qualified Code(s): E78.5 - Hyperlipidemia, unspecified (4) HTN (hypertension) Hypertension type: essential hypertension Qualified Code(s): I10 - Essential (primary) hypertension
[2020-04-19] MEDS ORDERED: REMDESIVIR 200 MG in SODIUM CHLORIDE 0.9% 210 ML IV ONE (16:30)
[2020-04-19] MEDS: SODIUM CHLORIDE 0.9% 10ML FLUSH IV SCH (19:01)
[2020-04-19] MEDS: POLYETHYLENE (MIRALAX) 17 GM PACK PO PRN (19:24)
[2020-04-19] MEDS: ENOXAPARIN INJ 40 MG/0.4 ML SYR SQ SCH (21:40)
[2020-04-20] MEDS: LEVOTHYROXINE SODIUM 200 MCG TABLET PO SCH (06:11)
[2020-04-20 06:36] LABS: Basophils # (auto) 0.01 K/uL (0-0.2); Basophils % (auto) 0.1 %; Eosinophils # (auto) 0.01 K/uL (0-0.5); Eosinophils % (auto) 0.1 %; Hematocrit (blood only) 40.8 % (42-52); Hemoglobin 14.6 g/dL (14.0-18.0); Immature Granulocytes # (auto) 0.11 K/uL (0.00-0.02); Lymphocytes # (auto) 1.03 K/uL (1.2-3.4); Mean Corpuscular Hemoglobin 31.6 pg (25-34); Mean Corpuscular Hgb Conc 35.8 g/dL (32-36); Mean Corpuscular Volume 88.3 fL (80-100); Mean Platelet Volume 11.1 fL (7.4-10.4); Monocytes # (auto) 0.88 K/uL (0.11-0.59); Monocytes % (auto) 7.7 %; Neutrophils # (auto) 9.38 K/uL (1.4-6.5); Neutrophils % (auto) 82.1 %; Platelet Count 213 K/uL (130-400); RDW Coefficient of Variation 13.5 % (11.5-14.5); RDW Standard Deviation 43.4 fL (36.4-46.3); Red Blood Count 4.62 M/uL (4.7-6.1); White Blood Count 11.42 K/uL (4.8-10.8)
[2020-04-20 07:04] LABS: Albumin Level 2.6 gm/dl (3.4-5.0); BUN Creatinine Ratio 21.4 (10-20); Bilirubin Direct 0.3 mg/dl (0-0.2); Calcium 8.8 mg/dl (8.5-10.1); Creatinine Clr Calc Pharmacy 78.3 ml/min; Est GFR (Non-African American) 66.5; Magnesium 1.9 mg/dl (1.8-2.4); Potassium 3.3 mmol/L (3.5-5.1)
[2020-04-20 07:07] LABS: Total Protein 6.6 gm/dl (6.4-8.2)
[2020-04-20] MEDS: DEXAMETHASONE SOD PHOSPHATE 6 MG in SYRINGE 0 ML IV SCH (07:45)
[2020-04-20] MEDS: TAMSULOSIN HCL 0.4 MG CAP PO SCH (07:46)
[2020-04-20] MEDS: FINASTERIDE 5 MG TAB PO SCH (07:46)
[2020-04-20] MEDS: ASPIRIN 81 MG ECTAB PO SCH (07:46)
[2020-04-20] MEDS: dilTIAZem HCL 240 MG CAPCR PO SCH (07:46)
[2020-04-20] MEDS: FAMOTIDINE 40 MG TABLET PO SCH (07:46)
[2020-04-20] MEDS: OMEGA-3 (PURIFIED FISH OIL) 1 GM CAP PO SCH (07:47)
[2020-04-20] MEDS: CHOLECALCIFEROL 1,000 UNITS 25 MCG TAB PO SCH (07:47)
[2020-04-20] MEDS: ATENOLOL 50 MG TABLET PO SCH (07:48)
[2020-04-20] MEDS: ATORVASTATIN 40 MG TAB PO SCH (07:48)
[2020-04-20] MEDS: REMDESIVIR 100 MG in SODIUM CHLORIDE 0.9% 230 ML IV SCH (11:09)
[2020-04-20] MEDS: SODIUM CHLORIDE 0.9% 10ML FLUSH IV SCH (12:36)
--- NOTE | 2020-04-20 18:09 | Hospitalist Progress Note ---
Date of Service April 20, 2020 Assessment & Plan (1) COVID-19: *Pneumonia due to coronavirus disease 2019 - symptoms started around 04/13/20, multiple co-morbidities. concern with slow creep of oxygen requirements - niles with ckd3, niles has resolved and gfr improved started remdesivir - Decadron 6mg for 10 days or until hypoxia resolves - Procalcitonin 0.2, NLR 4:1. - Support oxygenation for goal SPO2 > 90%, good candidate for HFNC if needed. - no diarrhea only constipation (2) Hypoxia: Seccondary to COVID-19 pneumonia, does not appear to have bacterial infection superimposed. - PCT negative - no ABX needed - Albuterol and Atrovent MDI PRN (3) CAD (coronary artery disease): Patient with history of RCA stent in 1997 - Continue asa, statin, BB and CCB - NTG prn if needed, patient states he has never used his NTG. - Hold AISHA/ARB for NILES, improved since admission (4) HTN (hypertension): - Normally well controlled (5) Hypokalemia: replete (6) Acute kidney injury: resolved - Hold AISHA/ARB 24-48 hours will re-start with renal indices return to close or at baseline. - Hold HCTZ at this time bp is stable. - Avoid nephrotoxic agents - renal dose medications - Adjust Lovenox accordingly - improving with hydration and holding meds (7) HLD (hyperlipidemia): atorvastatin 40 mg (8) Cerebrovascular disease: Manage blood pressure as above and holding statin therapy as above. - no new symptoms or evidence of worsening disease from physical exam. (9) BPH (benign prostatic hyperplasia): Continue home medications, follow urine output. - Hold if BP decreases (10) Troponin level elevated: Mild troponin elevation at 0.06, no acute changes on ECG, but non-specific T waves. no significant trend. - (11) PMR (polymyalgia rheumatica): Patient is chronically on Prednisone daily - Will hold while patient is receiving Decadron. - Tylenol for pain - Will hold on NSAIDs with NILES (12) Hypothyroidism: Check TSH slightly low, continue home Levothyroxine dose for now check free T4, does not clinically appear hyperthyroid (13) DVT prophylaxis: Lovenox SQ daily Disposition-admit to medical/surgical floor Admission and Anticipated Discharge Date Admission Date: April 17, 2020 Subjective Pt continues with littel complaints but does have tachypnea on exam and in conversation today Review of Systems Review of Systems: Mild distress and fatigue no headache, blurry or double vision no speech or swallowing issues no chest pain, pressure or palpitations mild shortness of breath, non productive cough or wheezes no abdominal pain, nausea or vomiting, diarrhea or constipation no dysuria, hematuria or frequency no focal joint pain or swelling no back pain, CVA tenderness or radicular pain no bruising, bleeding or rashes no focal signs of weakness or numbness or altered sensation no complaints of anxiety or depression.. Physical Exam Physical Exam: The patient appeared well nourished and normally developed. Vital signs as documented. Head exam is normocephalic atraumatic no scleral icterus Neck is without JVD, thyromegaly, or carotid bruits. Lungs are only with occasional rales bilaterally Cardiac exam, Rhythm is regular.. No murmurs, rubs or gallops. Abdominal exam reveals normal bowel sounds, soft non tender, no masses Extremities are nonedematous and both pedal pulses are present Neurologic exam is alert and oriented, no focal loss of strength or sensation Skin is without bruises or rashes Psychologically is without concerns for anxiety or depression. Results & Data Results & Data ([facility]) Vital Signs (Past 12 Hours) Vital Signs Temp Pulse Resp BP Pulse Ox 04/20/20 16:00 93 04/20/20 15:07 97.7 F 53 L 22 117/70 91 04/20/20 15:00 93 04/20/20 08:00 22 90 04/20/20 07:04 97.9 F 71 20 168/69 H 90 PG Care Time/CCT Total # of Minutes Spent Total Time Spent with Patient: Total time spent is greater than 50% in coordination of care (as documented) at patient's floor/unit and/or counseling patient: Coding Level of Care Code 34437 Subseq Hosp Care Lvl 3 Diagnoses COVID-19 U07.1 Hypoxia R09.02 CAD (coronary artery disease) I25.10 Coronary Disease-Associated Artery/Lesion type: unspecified vessel or lesion type [place] vs. transplanted heart: [place] heart Associated angina: without angina HTN (hypertension) I10 Hypertension type: essential hypertension Hypokalemia E87.6 Acute kidney injury N17.9 HLD (hyperlipidemia) E78.5 Hyperlipidemia type: unspecified Cerebrovascular disease I67.9 BPH (benign prostatic hyperplasia) N40.1; R35.0 Lower urinary tract symptom presence: symptoms present Lower urinary tract symptom detail: urinary frequency Troponin level elevated R77.8 PMR (polymyalgia rheumatica) M35.3 Hypothyroidism E03.9 DVT prophylaxis Z29.9 (1) CAD (coronary artery disease) Coronary Disease-Associated Artery/Lesion type: unspecified vessel or lesion type [place] vs. transplanted heart: [place] heart Associated angina: without angina Qualified Code(s): I25.10 - Atherosclerotic heart disease of [place] coronary artery without angina pectoris (2) HTN (hypertension) Hypertension type: essential hypertension Qualified Code(s): I10 - Essential (primary) hypertension (3) HLD (hyperlipidemia) Hyperlipidemia type: unspecified Qualified Code(s): E78.5 - Hyperlipidemia, unspecified (4) BPH (benign prostatic hyperplasia) Lower urinary tract symptom presence: symptoms present Lower urinary tract symptom detail: urinary frequency Qualified Code(s): N40.1 - Benign prostatic hyperplasia with lower urinary tract symptoms; R35.0 - Frequency of micturition
[2020-04-20] MEDS: ENOXAPARIN INJ 40 MG/0.4 ML SYR SQ SCH (20:51)
[2020-04-20] MEDS: POTASSIUM CHLORIDE CRTAB 20 MEQ TABCR PO SCH (20:54)
[2020-04-21] MEDS: LEVOTHYROXINE SODIUM 200 MCG TABLET PO SCH (05:46)
[2020-04-21] MEDS: POLYETHYLENE (MIRALAX) 17 GM PACK PO PRN (06:36)
[2020-04-21] MEDS: OMEGA-3 (PURIFIED FISH OIL) 1 GM CAP PO SCH (07:56)
[2020-04-21] MEDS: FINASTERIDE 5 MG TAB PO SCH (07:56)
[2020-04-21] MEDS: ATENOLOL 50 MG TABLET PO SCH (07:57)
[2020-04-21] MEDS: dilTIAZem HCL 240 MG CAPCR PO SCH (07:57)
[2020-04-21] MEDS: TAMSULOSIN HCL 0.4 MG CAP PO SCH (07:57)
[2020-04-21] MEDS: ASPIRIN 81 MG ECTAB PO SCH (07:57)
[2020-04-21] MEDS: CHOLECALCIFEROL 1,000 UNITS 25 MCG TAB PO SCH (07:57)
[2020-04-21] MEDS: POTASSIUM CHLORIDE CRTAB 20 MEQ TABCR PO SCH ×2 (07:58→20:22)
[2020-04-21] MEDS: ATORVASTATIN 40 MG TAB PO SCH (07:58)
[2020-04-21] MEDS: DEXAMETHASONE SOD PHOSPHATE 6 MG in SYRINGE 0 ML IV SCH (07:58)
[2020-04-21] MEDS: FAMOTIDINE 40 MG TABLET PO SCH (07:58)
[2020-04-21 08:24] LABS: BUN Creatinine Ratio 21.4 (10-20); Creatinine Clr Calc Pharmacy 78.3 ml/min; Est GFR (Non-African American) 66.5; Potassium 3.9 mmol/L (3.5-5.1)
[2020-04-21] MEDS: REMDESIVIR 100 MG in SODIUM CHLORIDE 0.9% 230 ML IV SCH (11:36)
[2020-04-21] MEDS: SODIUM CHLORIDE 0.9% 10ML FLUSH IV SCH (12:32)
--- NOTE | 2020-04-21 16:59 | Hospitalist Progress Note ---
Date of Service April 21, 2020 Assessment & Plan (1) COVID-19: *Pneumonia due to coronavirus disease 2019 - symptoms started around 04/13/20, multiple co-morbidities. concern with slow creep of oxygen requirements - niles with ckd3, niles has resolved and gfr improved started remdesivir - Decadron 6mg for 10 days or until hypoxia resolves - remdesivir protocol - Procalcitonin 0.2, NLR 4:1. - Support oxygenation for goal SPO2 > 90%, good candidate for HFNC if needed. - no diarrhea only constipation (2) Hypoxia: Seccondary to COVID-19 pneumonia, does not appear to have bacterial infection superimposed. - PCT negative - no ABX needed - Albuterol and Atrovent MDI PRN (3) CAD (coronary artery disease): Patient with history of RCA stent in 1997 - Continue asa, statin, BB and CCB - NTG prn if needed, patient states he has never used his NTG. - Holding AISHA/ARB for NILES, improved since admission (4) HTN (hypertension): - Normally well controlled (5) Hypokalemia: replete (6) Acute kidney injury: resolved - Hold AISHA/ARB 24-48 hours will re-start with renal indices return to close or at baseline. - Hold HCTZ at this time bp is stable. - Avoid nephrotoxic agents - renal dose medications - Adjust Lovenox accordingly - improving with hydration and holding meds (7) HLD (hyperlipidemia): atorvastatin 40 mg (8) Cerebrovascular disease: Manage blood pressure as above and holding statin therapy as above. - no new symptoms or evidence of worsening disease from physical exam. (9) BPH (benign prostatic hyperplasia): Continue home medications, follow urine output. - Hold if BP decreases (10) Troponin level elevated: Mild troponin elevation at 0.06, no acute changes on ECG, but non-specific T waves. no significant trend. - (11) PMR (polymyalgia rheumatica): Patient is chronically on Prednisone daily - Will hold while patient is receiving Decadron. - Tylenol for pain - Will hold on NSAIDs with NILES (12) Hypothyroidism: Checked TSH slightly low, continue home Levothyroxine dose for now checked free T4, does not clinically appear hyperthyroid (13) DVT prophylaxis: Lovenox SQ daily Disposition-admit to medical/surgical floor Admission and Anticipated Discharge Date Admission Date: April 17, 2020 Subjective Pt continues with littel complaints but does have less tachypnea on exam and in conversation today Review of Systems Review of Systems: Mild distress and fatigue no headache, blurry or double vision no speech or swallowing issues no chest pain, pressure or palpitations mild shortness of breath, non productive cough or wheezes no abdominal pain, nausea or vomiting, diarrhea or constipation no dysuria, hematuria or frequency no focal joint pain or swelling no back pain, CVA tenderness or radicular pain no bruising, bleeding or rashes no focal signs of weakness or numbness or altered sensation no complaints of anxiety or depression.. Physical Exam Physical Exam: The patient appeared well nourished and normally developed. Vital signs as documented. Head exam is normocephalic atraumatic no scleral icterus Neck is without JVD, thyromegaly, or carotid bruits. Lungs are only with occasional rales bilaterally Cardiac exam, Rhythm is regular.. No murmurs, rubs or gallops. Abdominal exam reveals normal bowel sounds, soft non tender, no masses Extremities are nonedematous and both pedal pulses are present Neurologic exam is alert and oriented, no focal loss of strength or sensation Skin is without bruises or rashes Psychologically is without concerns for anxiety or depression. Results & Data Results & Data ([facility]) Vital Signs (Past 12 Hours) Vital Signs Temp Pulse Pulse Resp BP Pulse Ox 04/21/20 15:30 98.2 F 54 L 17 121/77 94 04/21/20 10:20 97.9 F 63 22 109/68 91 04/21/20 07:55 64 PG Care Time/CCT Total # of Minutes Spent Total Time Spent with Patient: Total time spent is greater than 50% in coordination of care (as documented) at patient's floor/unit and/or counseling patient: Coding Level of Care Code 62009 Subseq Hosp Care Lvl 3 Diagnoses COVID-19 U07.1 Hypoxia R09.02 CAD (coronary artery disease) I25.10 Coronary Disease-Associated Artery/Lesion type: unspecified vessel or lesion type [place] vs. transplanted heart: [place] heart Associated angina: without angina HTN (hypertension) I10 Hypertension type: essential hypertension Hypokalemia E87.6 Acute kidney injury N17.9 HLD (hyperlipidemia) E78.5 Hyperlipidemia type: unspecified Cerebrovascular disease I67.9 BPH (benign prostatic hyperplasia) N40.1; R35.0 Lower urinary tract symptom presence: symptoms present Lower urinary tract symptom detail: urinary frequency Troponin level elevated R77.8 PMR (polymyalgia rheumatica) M35.3 Hypothyroidism E03.9 DVT prophylaxis Z29.9 (1) CAD (coronary artery disease) Coronary Disease-Associated Artery/Lesion type: unspecified vessel or lesion type [place] vs. transplanted heart: [place] heart Associated angina: without angina Qualified Code(s): I25.10 - Atherosclerotic heart disease of [place] coronary artery without angina pectoris (2) HTN (hypertension) Hypertension type: essential hypertension Qualified Code(s): I10 - Essential (primary) hypertension (3) HLD (hyperlipidemia) Hyperlipidemia type: unspecified Qualified Code(s): E78.5 - Hyperlipidemia, unspecified (4) BPH (benign prostatic hyperplasia) Lower urinary tract symptom presence: symptoms present Lower urinary tract symptom detail: urinary frequency Qualified Code(s): N40.1 - Benign prostatic hyperplasia with lower urinary tract symptoms; R35.0 - Frequency of micturition
[2020-04-21] MEDS: ENOXAPARIN INJ 40 MG/0.4 ML SYR SQ SCH (20:16)
[2020-04-22] MEDS: LEVOTHYROXINE SODIUM 200 MCG TABLET PO SCH (06:07)
[2020-04-22] MEDS: ATENOLOL 50 MG TABLET PO SCH (07:50)
[2020-04-22] MEDS: dilTIAZem HCL 240 MG CAPCR PO SCH (07:50)
[2020-04-22] MEDS: TAMSULOSIN HCL 0.4 MG CAP PO SCH (07:51)
[2020-04-22] MEDS: DEXAMETHASONE SOD PHOSPHATE 6 MG in SYRINGE 0 ML IV SCH (07:51)
[2020-04-22] MEDS: ATORVASTATIN 40 MG TAB PO SCH (07:51)
[2020-04-22] MEDS: CHOLECALCIFEROL 1,000 UNITS 25 MCG TAB PO SCH (07:51)
[2020-04-22] MEDS: FINASTERIDE 5 MG TAB PO SCH (07:52)
[2020-04-22] MEDS: FAMOTIDINE 40 MG TABLET PO SCH (07:52)
[2020-04-22] MEDS: OMEGA-3 (PURIFIED FISH OIL) 1 GM CAP PO SCH (07:52)
[2020-04-22] MEDS: ASPIRIN 81 MG ECTAB PO SCH (07:52)
[2020-04-22] MEDS: REMDESIVIR 100 MG in SODIUM CHLORIDE 0.9% 230 ML IV SCH (12:09)
[2020-04-22] MEDS: SODIUM CHLORIDE 0.9% 10ML FLUSH IV SCH (13:39)
--- NOTE | 2020-04-22 15:08 | Hospitalist Progress Note ---
Date of Service April 22, 2020 Assessment & Plan (1) COVID-19: *Pneumonia due to coronavirus disease 2019 - symptoms started around 04/13/20, multiple co-morbidities. concern with slow creep of oxygen requirements - niles with ckd3, niles has resolved and gfr improved started remdesivir - Decadron 6mg for 10 days or until hypoxia resolves - remdesivir protocol - Procalcitonin 0.2 - Support oxygenation for goal SPO2 > 90%, good candidate for HFNC if needed. - no diarrhea only constipation (2) Hypoxia: Seccondary to COVID-19 pneumonia, does not appear to have bacterial infection superimposed. - PCT negative - no ABX needed - Albuterol and Atrovent MDI PRN (3) CAD (coronary artery disease): Patient with history of RCA stent in 1997 - Continue asa, statin, BB and CCB - NTG prn if needed, patient states he has never used his NTG. - Holding AISHA/ARB for NILES, improved since admission (4) HTN (hypertension): - Normally well controlled (5) Hypokalemia: replete (6) Acute kidney injury: resolved - Hold AISHA/ARB 24-48 hours will re-start with renal indices return to close or at baseline. - Hold HCTZ at this time bp is stable. - Avoid nephrotoxic agents - renal dose medications (7) HLD (hyperlipidemia): atorvastatin 40 mg (8) Cerebrovascular disease: Manage blood pressure as above and holding statin therapy as above. - no new symptoms or evidence of worsening disease from physical exam. (9) BPH (benign prostatic hyperplasia): Continue home medications (10) Troponin level elevated: Mild troponin elevation at 0.06, no acute changes on ECG, but non-specific T waves. no significant trend. - (11) PMR (polymyalgia rheumatica): Patient is chronically on Prednisone daily - Will hold while patient is receiving Decadron. - Tylenol for pain - Will hold on NSAIDs with NILES (12) Hypothyroidism: Checked TSH slightly low, continue home Levothyroxine dose for now checked free T4, does not clinically appear hyperthyroid (13) DVT prophylaxis: Lovenox SQ daily Disposition-admit to medical/surgical floor Admission and Anticipated Discharge Date Admission Date: April 17, 2020 Subjective Pt continues with little complaints, continues have less tachypnea on exam and in conversation today Review of Systems Review of Systems: Mild distress and fatigue no headache, blurry or double vision no speech or swallowing issues no chest pain, pressure or palpitations mild shortness of breath, non productive cough or wheezes no abdominal pain, nausea or vomiting, diarrhea or constipation no dysuria, hematuria or frequency no focal joint pain or swelling no back pain, CVA tenderness or radicular pain no bruising, bleeding or rashes no focal signs of weakness or numbness or altered sensation no complaints of anxiety or depression.. Physical Exam Physical Exam: The patient appeared well nourished and normally developed. Vital signs as documented. Head exam is normocephalic atraumatic no scleral icterus Neck is without JVD, thyromegaly, or carotid bruits. Lungs are only with occasional rales bilaterally Cardiac exam, Rhythm is regular.. No murmurs, rubs or gallops. Abdominal exam reveals normal bowel sounds, soft non tender, no masses Extremities are nonedematous and both pedal pulses are present Neurologic exam is alert and oriented, no focal loss of strength or sensation Skin is without bruises or rashes Psychologically is without concerns for anxiety or depression. Results & Data Results & Data ([facility]) Vital Signs (Past 12 Hours) Vital Signs Temp Pulse Pulse Resp BP BP Pulse Ox 04/22/20 07:49 53 L 134/83 04/22/20 07:12 97.5 F L 52 L 16 177/80 H 92 PG Care Time/CCT Total # of Minutes Spent Total Time Spent with Patient: Total time spent is greater than 50% in coordination of care (as documented) at patient's floor/unit and/or counseling patient: Coding Level of Care Code 31958 Subseq Hosp Care Lvl 2 Diagnoses COVID-19 U07.1 Hypoxia R09.02 CAD (coronary artery disease) I25.10 Coronary Disease-Associated Artery/Lesion type: unspecified vessel or lesion type [place] vs. transplanted heart: [place] heart Associated angina: without angina HTN (hypertension) I10 Hypertension type: essential hypertension Hypokalemia E87.6 Acute kidney injury N17.9 HLD (hyperlipidemia) E78.5 Hyperlipidemia type: unspecified Cerebrovascular disease I67.9 BPH (benign prostatic hyperplasia) N40.1; R35.0 Lower urinary tract symptom presence: symptoms present Lower urinary tract symptom detail: urinary frequency Troponin level elevated R77.8 PMR (polymyalgia rheumatica) M35.3 Hypothyroidism E03.9 DVT prophylaxis Z29.9 (1) CAD (coronary artery disease) Coronary Disease-Associated Artery/Lesion type: unspecified vessel or lesion type [place] vs. transplanted heart: [place] heart Associated angina: without angina Qualified Code(s): I25.10 - Atherosclerotic heart disease of [place] coronary artery without angina pectoris (2) HTN (hypertension) Hypertension type: essential hypertension Qualified Code(s): I10 - Essential (primary) hypertension (3) HLD (hyperlipidemia) Hyperlipidemia type: unspecified Qualified Code(s): E78.5 - Hyperlipidemia, unspecified (4) BPH (benign prostatic hyperplasia) Lower urinary tract symptom presence: symptoms present Lower urinary tract symptom detail: urinary frequency Qualified Code(s): N40.1 - Benign prostatic hyperplasia with lower urinary tract symptoms; R35.0 - Frequency of micturition
[2020-04-22] MEDS: ENOXAPARIN INJ 40 MG/0.4 ML SYR SQ SCH (19:53)
[2020-04-23] MEDS: LEVOTHYROXINE SODIUM 200 MCG TABLET PO SCH (06:40)
[2020-04-23] MEDS: TAMSULOSIN HCL 0.4 MG CAP PO SCH (08:35)
[2020-04-23] MEDS: ATENOLOL 50 MG TABLET PO SCH (08:35)
[2020-04-23] MEDS: FAMOTIDINE 40 MG TABLET PO SCH (08:35)
[2020-04-23] MEDS: FINASTERIDE 5 MG TAB PO SCH (08:35)
[2020-04-23] MEDS: dilTIAZem HCL 240 MG CAPCR PO SCH (08:35)
[2020-04-23] MEDS: OMEGA-3 (PURIFIED FISH OIL) 1 GM CAP PO SCH (08:36)
[2020-04-23] MEDS: CHOLECALCIFEROL 1,000 UNITS 25 MCG TAB PO SCH (08:36)
[2020-04-23] MEDS: ATORVASTATIN 40 MG TAB PO SCH (08:36)
[2020-04-23] MEDS: ASPIRIN 81 MG ECTAB PO SCH (08:36)
[2020-04-23] MEDS: DEXAMETHASONE SOD PHOSPHATE 6 MG in SYRINGE 0 ML IV SCH (09:19)
[2020-04-23] MEDS: REMDESIVIR 100 MG in SODIUM CHLORIDE 0.9% 230 ML IV SCH (11:17)
[2020-04-23] MEDS: SODIUM CHLORIDE 0.9% 10ML FLUSH IV SCH (12:52)
--- NOTE | 2020-04-23 13:21 | Discharge Summary ---
Date of Service April 23, 2020 Admission HPI Per Admitting Provider 70 YOM came to the ER today because his and son thought he was looking tired and having a more difficult time breathing. The patient states that "he feels "ok" and hasn't noticed it." Patient has a history of BPH, HLD, CAD with stenting in 1997 prior to his bilateral knee replacements, HTN, obesity, PMR and internal iliac aneurysm, and Hypothyroidism. The patient was recently diagnosed with COVID 19 on Apr,. 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 The patient's son-in law tested positive a couple weeks ago and his son recently tested positive on Apr. Mr. Giron started with a mild headache around and started having diarrhea on Thursday. Patients headache worsened on Thursday as well as having a fever to 103. The patient went and got tested at an urgent care in [place] on Thursday and was "positive". In the EMD the patient was 90% on RA on admission and maintained 90% on room air throughout the interview while on 2l NC the patient Spo2 was 94-96%. The patient denies any further symptoms, his headache has resolved and his joint pain is at his baseline, headache was mild 2-3/10 and was bilateral along the forehead. Diarrhea is about 4-5 times per day and has not noted blood in his stools and denies abdominal pain. The patient does show evidence of end organ involvement with elevated AST/ALT, Tbili, increase in his [employer], and elevated CRP and ESR, with evidence of hypovolemia. The patient will be admitted for hypoxia, resuscitate and follow biomarkers for end organ involvement. Principal Diagnosis COVID 19 pneumonia Discharge Exam Constitutional WD/WN, vitals as above + obese; no acute distress Neck trachea midline, no thyromegaly Respiratory normal respiratory effort, lungs clear to auscultation no respiratory distress and no labored breathing Cardiovascular RRR, no murmur, no edema Gastrointestinal (Abdomen) normal bowel sounds, soft, nontender, no hepatosplenomegaly Musculoskeletal no cyanosis or clubbing, extremities motor strength 5/5 Skin no rashes, warm and dry Neurologic patellar DTR's 2+ bilat, sensation intact and PERRL, EOMI, accommodation nl, no face palsy, no dysarthria Psychiatric A+Ox3, euthymic affect Lymphatic no cervical or axillary lymphadenopathy Discharge Data Allergies Allergy/AdvReac Type Severity Reaction Status Date / Time No Known Drug Allergies Allergy Verified 04/17/20 14:38 Consultations 04/17/20 13:44 ED Decision to Admit Stat Hospital Course (1) COVID-19: *Pneumonia due to coronavirus disease 2019 - symptoms started around 04/13/20, multiple co-morbidities. concern with slow creep of oxygen requirements - niles with ckd3, niles has resolved and gfr improved started remdesivir - Decadron 6mg daily will need 3 more days on discharge, then resume Prednisone 3mg daily - remdesivir, no further treatment needed as he is not hypoxemic titrated to room air, breathing comfortably at rest and on exertion discharge to home, stay well rested, well nourished, well hydrated complete three more days of dexamethasone (2) Hypoxia: Seccondary to COVID-19 pneumonia, does not appear to have bacterial infection superimposed. - PCT negative - no ABX needed - Albuterol and Atrovent MDI PRN weaned down to room air, no distress (3) CAD (coronary artery disease): Patient with history of RCA stent in 1997 - Continue asa, statin, BB and CCB - NTG prn if needed, patient states he has never used his NTG. - Holding AISHA/ARB for NILES, improved since admission (4) HTN (hypertension): - Normally well controlled (5) Hypokalemia: replete (6) Acute kidney injury: resolved - Held AISHA/ARB, now resumed - Hold HCTZ at this time bp is stable. - Avoid nephrotoxic agents - renal dose medications (7) HLD (hyperlipidemia): atorvastatin 40 mg (8) Cerebrovascular disease: Manage blood pressure as above and holding statin therapy as above. - no new symptoms or evidence of worsening disease from physical exam. (9) BPH (benign prostatic hyperplasia): Continue home medications (10) Troponin level elevated: Mild troponin elevation at 0.06, no acute changes on ECG, but non-specific T waves. no significant trend. - (11) PMR (polymyalgia rheumatica): Patient is chronically on Prednisone daily - Will hold while patient is receiving Decadron, resume in three days - Tylenol for pain - Will hold on NSAIDs with NILES (12) Hypothyroidism: Checked TSH slightly low, continue home Levothyroxine dose for now checked free T4, does not clinically appear hyperthyroid (13) DVT prophylaxis: Lovenox SQ daily Disposition-admit to medical/surgical floor Total Time Total Time Spent Total Time Spent (In Minutes): 32 minutes Total Time Includes: Examination of the Patient, Discharge Planning and Medic ation Reconciliation Discharge Plan Discharge Items Patient Disposition: Home - Self-Care Reason For Visit: COVID 19, HYPOXIA Discharge Diagnosis: COVID 19 pneumonia Acute hypoxic respiratory failure Condition on Discharge: Good Goals: stay well rested, well hydrated complete course of dexamethasone Activity: Resume your previous activity Non-emergency contact: Primary Care Provider Call non-emergency contact if: you have any medication questions Follow-up/Referrals: Joe Hernandez [Primary Care Provider] - (one week) Diet: Heart Healthy Addtl Attending Provider Instructions: Medications: - DEXAMETHASONE: 6mg daily for three more days then resume Prednisone 3mg daily - DILTIAZEM: stop the 120mg evening dose, continue with 240mg daily in the morning COVID 19 pneumonia with acute hypoxia, dehydration, acute kidney injury titrated down to room air, no shortness of breath on exertion, recovering well from pneumonia you need to complete 3 more days of dexamethasone 6mg daily stay well nourished, well hydrated you should be in isolation 10 days from positive test, if that was 04/13/20 then you can come off isolation after tomorrow monitor for any worsening shortness of breath but you should only continue to improve from this point on follow up with Dr. Hernandez in one week Pending Studies at Discharge: No Stand-Alone Forms: My [facility], Smoking Cessation Medications and DC Order Prescriptions: Continued tamsulosin 0.4 mg capsule 0.4 mg PO DAILY Qty: 90 RF: 3 finasteride 5 mg tablet 5 mg PO DAILY Qty: 90 RF: 3 aspirin 81 mg tablet,delayed release (DR/EC) 81 mg PO DAILY RF: 0 hydrochlorothiazide 25 mg tablet 25 mg PO DAILY RF: 0 cholecalciferol (vitamin D3) 50 mcg (2,000 unit) capsule 2,000 unit PO DAILY RF: 0 nitroglycerin 0.4 mg tablet, sublingual 0.4 mg SL Q5M PRN (Reason: chest pain) Qty: 1 RF: 0 famotidine 40 mg tablet 40 mg PO DAILY RF: 0 atenolol 50 mg tablet 50 mg PO DAILY RF: 0 diltiazem HCl [Cardizem CD] 240 mg capsule,extended release 24hr 240 mg PO DAILY RF: 0 olmesartan-hydrochlorothiazide 40-25 mg tablet 1 tab PO DAILY RF: 0 levothyroxine 200 mcg tablet 200 mcg PO DAILY RF: 0 levothyroxine 25 mcg tablet 25 mcg PO DAILY RF: 0 atorvastatin 40 mg tablet 40 mg PO QPM RF: 0 omega-3 fatty acids [Fish Oil Concentrate] 1,000 mg capsule 1,000 mg PO DAILY RF: 0 prednisone 1 mg tablet 3 mg PO DAILY RF: 0 Discontinued diltiazem HCl 120 mg capsule,extended release 24hr 120 mg PO HS RF: 0 Discharge Orders: Discharge Order (Routine); Ordered 04/23/20 Ordered By: Harpal Lui/Other Patient Handouts: Eating Heart-Healthy Foods Admission Data Admit Date/Time: 04/17/20 14:30 Attending Provider: Harpal Faustin Admit Provider: Sarika Pena Primary Care Provider: Joe Hernandez Other Providers: Sarika Pena Other Interventions: Discharge Summary Assessment (RN) Last Done: 04/23/20 13:24 Coding Level of Care Code D/C Day Management >30 mins Diagnoses COVID-19 U07.1 Hypoxia R09.02 CAD (coronary artery disease) I25.10 Associated angina: without angina Coronary Disease-Associated Artery/Lesion type: unspecified vessel or lesion type [place] vs. transplanted heart: [place] heart HTN (hypertension) I10 Hypertension type: essential hypertension Hypokalemia E87.6 Acute kidney injury N17.9 HLD (hyperlipidemia) E78.5 Hyperlipidemia type: unspecified Cerebrovascular disease I67.9 BPH (benign prostatic hyperplasia) N40.1; R35.0 Lower urinary tract symptom detail: urinary frequency Lower urinary tract symptom presence: symptoms present Troponin level elevated R77.8 PMR (polymyalgia rheumatica) M35.3 Hypothyroidism E03.9 DVT prophylaxis Z29.9
== END 2020-04-23 15:00 | disposition home or self-care (01) | DRG 177 ==
LOC: ED 12:07 → 3E 14:30 → SUATTDRO 14:30 → 3E 17:24